=== PATIENT | female | born 2000 | race Caucasian/White ===

== ENCOUNTER 2020-05-26 17:09 | Emergency (ER) | payer BC, SELFPAY ==
[~2020-05-26] VITALS: Ht 162.6 cm; Wt 54.4 kg
--- NOTE | 2020-05-26 17:56 | NUR ---
C/O CONTACT [employer] WORKER HAS COVID +. DENIES FEVER, COUGH, HEADCHE. MED HX: DENIES
--- NOTE | 2020-05-26 18:02 | NUR ---
Patient discharged with v/s stable. Written and verbal after care instructions given and explained. Patient verbalized understanding. Ambulatory with steady gait. All questions addressed prior to discharge. Advised to follow up with PMD.
[2020-05-26 18:03] VITALS: BP 132/71
== END 2020-05-26 18:02 | disposition home or self-care (01) ==
LOC: MED 17:09 → EEVIPCON 17:09 → MED 18:02
DX: Z20.828 Contact with and (suspected) exposure to other viral communicable diseases (principal)
CPT/HCPCS: 99283; U0003